=== PATIENT | female | born 1970 ===

== ENCOUNTER 2025-03-25 22:57 | Emergency (ER) | payer MEDICAID, OTHER, SELFPAY ==
[2025-03-25 22:59] VITALS: BP 134/72; PULSE 69; RESP 16; TEMP 36.6; O2SAT 98; BMI 20.4
[2025-03-25 23:31] LABS: MANUAL DIFF FLAG NO
[2025-03-25 23:32] LABS: Hematocrit 38.1 % (37.0-47.0); Hemoglobin 13.1 g/dl (12.0-16.0); Imm Gran Abs Auto 0.01 X10*3/uL (0.00-0.03); Imm Gran Pct Auto 0.2 % (0.0-0.4); Lymphocytes Absolute Auto 2.5 X10*3/uL (1.2-4.9); Mean Corpuscular HGB Conc 34.4 g/dl (31.0-35.0); Mean Corpuscular Hemoglobin 27.1 pg (27.0-33.0); Mean Corpuscular Volume 78.9 fL (80.0-98.0); NRBC Abs Auto 0.000 X10*3/uL (0.0-0.012); NRBC Pct Auto 0.0 /100WBC (0.0-0.2); Platelet Count 235 X10*3/uL (160-400); Red Blood Count 4.83 X10*6/uL (4.20-5.50); White Blood Count 5.3 X10*3/uL (4.8-10.8)
[2025-03-25 23:50] LABS: Alanine Aminotransferase 22 U/L (0-31); Albumin Level 4.1 g/dL (3.5-5.0); Alkaline Phosphatase 144 U/L (39-117); Anion Gap 11 (12-20); Aspartate Amino Transferase 22 U/L (5-31); Blood Urea Nitrogen 23 mg/dL (9-16); Calcium 8.8 mg/dL (8.4-10.2); Carbon Dioxide 24 mmol/L (22-29); Chloride 102 mmol/L (96-108); Creatinine Clr Calc Pharmacy 60.5; Estimated Glomerular Filt Rate > 60; Magnesium 2.0 mg/dL (1.6-2.6); Potassium 4.1 mmol/L (3.3-5.1); Sodium 133 mmol/L (135-145); Total Protein 7.6 g/dL (6.5-8.0)
--- NOTE | 2025-03-26 03:07 | ED.RECABL ---
HPI - Recheck/Abnormal Lab/Rx General Chief Complaint: Recheck/Abnormal Lab/Rx Stated Complaint: ?high blood sugar Time Seen by Provider: 03/26/25 02:54 Source: patient Mode of arrival: ambulatory Limitations: no limitations History of Present Illness ED Provider: Dr. Zoila Mendoza HPI narrative: Patient comes to the emergency room complaining of couple of weeks of bilateral foot burning sensation, pins and needles. Patient states that sometimes she feels unwell, a bit blurred vision, very thirsty, increased urination. Patient states that to her knowledge she was prediabetic. She was taking medications but has not been checking her sugars or had any medications for over a year. Patient denies chest pain or shortness of breath, denies headaches. Denies syncopal episodes Related Data Previous Rx's ?Medication ?Instructions ?Recorded gabapentin 100 mg capsule 100 mg PO BEDTIME #90 caps 03/26/25 metformin 1,000 mg tablet 1,000 mg PO BID #100 tabs 03/26/25 Allergies Allergy/AdvReac Type Severity Reaction Status Date / Time No Known Allergies Allergy Verified 03/25/25 23:06 Review of Systems Review of Systems: Constitutional : No Weight loss, No Fever, No Chills, No Night Sweats, No Fatigue, No Malaise ENT/Mouth : No Hearing loss, No Ear Pain, No Nasal Congestion, No Sinus Pain, No Hoarseness, No sore throat, No Rhinorrhea, No Swallowing Difficulty Eyes: No Eye Pain, No Swelling, No Redness, No Foreign Body, No Discharge, intermittent blurred vision not present at this time Cardiovascular : No Chest Pain, No SOB, No Dyspnea on Exertion, No Orthopnea, No Edema, No Palpitations Respiratory : No Cough, No Sputum, No Wheezing, No Smoke Exposure, No Dyspnea Gastrointestinal : No Nausea, No Vomiting, No Diarrhea, No Constipation, No abdominal Pain, No Hematochezia, No Melena Genitourinary : no irregular bleeding, No Dysuria, No Urinary Frequency, No Hematuria, No Urinary Incontinence, No Urgency, No Flank Pain, No Urinary Flow Changes, No Hesitancy Musculoskeletal : No joint pain, No Myalgias, No Joint Swelling Skin : No Skin Lesions, No rash Neuro : Complaining of burning sensation in the soles of both feet No Weakness, No Numbness, No Paresthesias, No Loss of Consciousness, No Dizziness, No Headache Psych : No Anxiety/Panic, No Depression, No SI/HI/AH/VH, No Social Issues, Heme/Lymph: No Bruising, No Bleeding,No Lymphadenopathy Endocrine : No Polyuria, No Polydipsia, No Temperature Intolerance [facility] Past Medical History Medical History (Updated 03/26/25 @ 03:24 by Zoila Mendoza MD) Diabetes Social History Social History Do you have a plan to hurt others: No Plan Physical Exam Vital Signs: Vital Signs: Last Vital Signs Temp 97.9 F 03/25/25 22:59 Pulse 69 03/25/25 22:59 Resp 16 03/25/25 22:59 BP 134/72 03/25/25 22:59 Pulse Ox 98 03/25/25 22:59 O2 Del Method Room Air 03/25/25 22:59 BMI result Body Mass Index 20.4 Const: Other: Appearance: Alert. Oriented X3. No acute distress. Eyes: Pupils equal, round and reactive to light. ENT: Pharynx normal. Neck: Normal inspection. Neck supple. No lymph nodes noted. No crepitus CVS: Normal heart rate and rhythm. Pulses normal. Normal S1 and S2 Respiratory: No respiratory distress. Breath sounds normal. No Wheezing. No rales Abdomen: Soft and nontender. No rigidity. No distention. Skin: Skin warm and dry. Normal skin color. Normal skin turgor. Extremities: No lower extremity edema. No Lacerations. No Rash Neuro: Oriented X 3. No motor deficit. No sensory deficit. Moving all extremities. No slurred speech. CN 2 through 12 grossly intact Psych: calm, cooperative, normal affect Course Course Course Narrative: To patient's knowledge, she has not been diagnosed with diabetes, states that she is prediabetic. She has not been taking any medications for over a year or checked her sugar. Labs were drawn in triage, patient's glucose is 409. Patient receiving IV fluids and 5 units of insulin. Medical Decision Making Medical Decision Making [facility] Narrative: My interpretation of labs: No significant abnormality in patient's hematology, chemistry shows a glucose of 409. I discussed with the patient that she is now diabetic. Patient needs to have close follow-up with a new PCP and is to be compliant with medications. Discussed with the patient that the pain that she is feeling in the soles of her feet is the beginning of neuropathy. I was informed by the patient's nurse that they checked a glucose, was 224 before administering insulin, I discussed with the patient's nurse to not administer insulin, only okay to give fluids. Patient's family at bedside, they agree with plan. Differential Diagnosis Differential Diagnoses: The differential diagnosis associated with the presentation includes (Type 2 diabetes, hyperglycemia) Admission/Observation Consideration of admission/observation: Escalation of care including admission/observation considered (Patient's glucose elevated, patient needed IV fluids, if glucose does not decreased, patient may need observation) Lab Data MDM Lab Attestation statement: I reviewed the patient's lab results. 03/25/25 23:26 03/25/25 23:26 Labs: Lab Results 03/25/25 Range/Units 23:26 WBC 5.3 (4.8-10.8) X10*3/uL RBC 4.83 (4.20-5.50) X10*6/uL Hgb 13.1 (12.0-16.0) g/dl Hct 38.1 (37.0-47.0) % MCV 78.9 L (80.0-98.0) fL MCH 27.1 (27.0-33.0) pg MCHC 34.4 (31.0-35.0) g/dl RDW 13.2 (11.0-16.0) % Plt Count 235 (160-400) X10*3/uL MPV 10.3 (9.4-12.3) fL Immature Gran % (Auto) 0.2 (0.0-0.4) % Neut % (Auto) 37.7 L (45-73) % Lymph % (Auto) 47.7 H (20-40) % [place] % (Auto) 8.8 (2-11) % Eos % (Auto) 4.7 H (0-4) % Baso % (Auto) 0.9 (0-2) % Lymph # (Auto) 2.5 (1.2-4.9) X10*3/uL [place] # (Auto) 0.5 (0.1-1.2) X10*3/uL Eos # (Auto) 0.3 (0.0-0.4) X10*3/uL Baso # (Auto) 0.1 (0.0-0.2) X10*3/uL Abs Immat Gran (auto) 0.01 (0.00-0.03) X10*3/uL Absolute Neuts (auto) 2.0 (2.0-8.3) x10*3/uL Absolute Nucleated RBC 0.000 (0.0-0.012) X10*3/uL Nucleated RBC % (auto) 0.0 (0.0-0.2) /100WBC Sodium 133 L (135-145) mmol/L Potassium 4.1 (3.3-5.1) mmol/L Chloride 102 (96-108) mmol/L Carbon Dioxide 24 (22-29) mmol/L Anion Gap 11 L (12-20) BUN 23 H (9-16) mg/dL Creatinine 0.67 (0.5-1.4) mg/dL Estim Creat Clear Calc 60.5 Estimated GFR > 60 Random Glucose 409 H* (60-115) mg/dL Calcium 8.8 (8.4-10.2) mg/dL Magnesium 2.0 (1.6-2.6) mg/dL Total Bilirubin 0.1 (0.0-1.0) mg/dL AST 22 (5-31) U/L ALT 22 (0-31) U/L Alkaline Phosphatase 144 H (39-117) U/L Total Protein 7.6 (6.5-8.0) g/dL Albumin 4.1 (3.5-5.0) g/dL Beta-Hydroxybutyrate 0.09 (0.02-0.27) mmol/L Critical Care Time Critical Care Time Critical Care Time: Yes Total Critical Care Time: 35 Attestation: I have personally provided critical care time. Time includes review of lab data, radiology results, discussion with consultants, and monitoring for potential decompensation. Intervention performed as documented. Discharge Plan Discharge Clinical Impression: Type 2 diabetes mellitus, Hyperglycemia, Diabetic neuropathy Patient Disposition: Home, Self-Care Instructions: Foot Care for People with Diabetes (ED), Type 2 Diabetes in Adults: New Diagnosis (DC), Diabetic Hyperglycemia (ED), Diabetes and Nutrition (ED), Diabetes and Exercise (ED) Additional Instructions: Please follow-up with your primary care physician tomorrow. If you have any worsening or new symptoms, please return to the emergency room or call 911 Prescriptions: New metformin 1,000 mg tablet 1,000 mg PO BID Qty: 100 0RF Rx Instructions: For the 1st week, take have [place] b.i.d., then 1 tablet b.i.d. gabapentin 100 mg capsule 100 mg PO BEDTIME Qty: 90 0RF
[2025-03-26 03:20] LABS: Glucose, Whole Blood 236 mg/dL (60-115)
[2025-03-26 03:43] VITALS: BP 114/73; PULSE 53; RESP 18; TEMP 36.4; O2SAT 100
[2025-03-26 04:29] VITALS: BP 114/73; PULSE 53; RESP 18; TEMP 36.4; O2SAT 100
[2025-03-26 05:52] LABS: Hemoglobin A1C 467.7897 umol/L; Total Hemoglobin (HGBA1C) 3414.9882 umol/L
== END 2025-03-26 04:31 | disposition home or self-care (01) ==
PROVIDERS: Emergency Provider Emergency Medicine
DX: E11.65 Type 2 diabetes mellitus with hyperglycemia (principal); E11.40 Type 2 diabetes mellitus with diabetic neuropathy, unspecified; R35.0 Frequency of micturition; R11.0 Nausea; H53.8 Other visual disturbances; R79.89 Other specified abnormal findings of blood chemistry; Z79.4 Long term (current) use of insulin; Z79.899 Other long term (current) drug therapy
CPT/HCPCS: 36415; 80053; 82010; 82947; 83036; 83735; 85025; 96360; 99284